=== PATIENT | male | born 1965 | race Caucasian/White ===

== ENCOUNTER 2019-05-14 02:41 | Emergency (ER) | payer BC ==
[2019-05-14] MEDS ORDERED: Ketorolac 30 MG/ML SDV IM ONE (03:13)
[2019-05-14] MEDS ORDERED: diphenhydrAMINE 50 MG/ML SDV IM ONE (03:13)
--- NOTE | 2019-05-14 03:20 | EDM.PDOC ---
ED HPI GENERAL MEDICAL PROBLEM - General Chief Complaint: General Stated Complaint: SICK, CONGESTED Time Seen by Provider: 05/14/19 03:16 Source of Information: Reports: Patient History Limitations: Reports: No Limitations - History of Present Illness INITIAL COMMENTS - FREE TEXT/NARRATIVE: Gentleman presents with a history of multiple complaints. Patient has not received a flu shot having any other problems. Patient states she has had multiple upper respiratory complaints. 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, NSAIDS headache Pain Score (Numeric/FACES): 8 - Related Data Allergies Allergy/AdvReac Type Severity Reaction Status Date / Time No Known Allergies Allergy Verified 05/14/19 02:52 Home Meds: Home Meds ClonazePAM [KlonoPIN] 05/14/19 [History] Lisinopril [Zestril] 0 mg PO DAILY 05/14/19 [History] Metoprolol Succinate 50 mg PO DAILY 05/14/19 [History] PARoxetine [Paxil] 0 mg PO DAILY 05/14/19 [History] Past Medical History HEENT History: Reports: Hard of Hearing, Impaired Vision Cardiovascular History: Reports: Hypertension Respiratory History: Reports: None Gastrointestinal History: Reports: None Genitourinary History: Reports: None Neurological History: Reports: Migraines Psychiatric History: Reports: Anxiety, Depression Endocrine/Metabolic History: Reports: None Hematologic History: Reports: None Immunologic History: Reports: None Dermatologic History: Reports: None - Infectious Disease History Infectious Disease History: Reports: Measles, Mumps - Past Surgical History Musculoskeletal Surgical History: Reports: Arthroscopic Knee Social & Family History - Family History Family Medical History: Noncontributory - Tobacco Use Smoking Status *Q: Never Smoker - Recreational Drug Use Recreational Drug Use: No ED ROS GENERAL - Review of Systems Review Of Systems: See Below Constitutional: Reports: No Symptoms HEENT: Reports: No Symptoms, Sinus Problem Respiratory: Reports: No Symptoms, Other Cardiovascular: Reports: No Symptoms. Denies: Chest Pain Endocrine: Reports: No Symptoms. Denies: Fatigue GI/Abdominal: Reports: No Symptoms. Denies: Abdominal Pain : Reports: No Symptoms. Denies: Discharge Musculoskeletal: Reports: No Symptoms Skin: Reports: No Symptoms. Denies: Cyanosis, Jaundice Neurological: Reports: No Symptoms. Denies: Confusion, Dizziness, Pre-Existing Deficit, Tremors, Trouble Speaking Psychiatric: Reports: No Symptoms. Denies: Agitation, Anxiety, Homicidal Ideation Hematologic/Lymphatic: Reports: No Symptoms. Denies: Anemia, Easy Bleeding Immunologic: Reports: No Symptoms. Denies: Anaphylaxis, Food Allergy ED EXAM, GENERAL - Physical Exam Exam: See Below Exam Limited By: No Limitations General Appearance: Alert, WD/WN, No Apparent Distress Eye Exam: Bilateral Eye: Normal Fundi, Normal Inspection Ears: Normal External Exam, Normal Canal Ear Exam: Bilateral Ear: Auricle Normal, Canal Normal, TM normal Nose: Normal Inspection, Normal Mucosa Throat/Mouth: Normal Inspection, Normal Lips Head: Atraumatic, Normocephalic Neck: Normal Inspection, Supple Respiratory/Chest: No Respiratory Distress, Lungs Clear, No Accessory Muscle Use Cardiovascular: Normal Peripheral Pulses GI/Abdominal: Normal Bowel Sounds, Soft, Non-Tender (Male) Exam: No Hernia, Normal Inspection Rectal (Males) Exam: Deferred. No: Normal Rectal Tone Back Exam: Normal Inspection. No: Full Range of Motion Extremities: Normal Inspection. No: Normal Range of Motion, No Pedal Edema, Normal Capillary Refill Psychiatric: Normal Affect, Normal Mood Skin Exam: Warm, Dry. No: Intact, Normal Color Course - Vital Signs Text/Narrative:: 53-year-old gentleman who presents to the emergency room with multiple upper respiratory problems. Patient found out to have influenza A. Patient will be discharged home with possibility of receiving tamiflu. Last Recorded V/S: Last Vital Signs Temp 100.2 F 05/14/19 03:02 Pulse 107 H 05/14/19 03:02 Resp 20 05/14/19 03:02 BP 148/64 H 05/14/19 03:02 Pulse Ox 94 L 05/14/19 03:02 - Orders/Labs/Meds Meds: Medications Discontinued Medications Generic Name Dose Route Start Last Admin Trade Name Freq PRN Reason Stop Dose Admin Diphenhydramine HCl 50 mg 05/14/19 03:13 05/14/19 03:25 Benadryl IM 05/14/19 03:14 50 mg ONETIME ONE Administration Ketorolac Tromethamine 30 mg 05/14/19 03:13 05/14/19 03:25 Toradol IM 05/14/19 03:14 30 mg ONETIME ONE Administration Departure - Departure Time of Disposition: 03:59 Disposition: Home, Self-Care 01 Condition: Good Clinical Impression: Influenza A - Discharge Information Instructions: Influenza, Adult Referrals: PCP,Not In Area [Primary Care Provider] - Forms: ED Department Discharge Sepsis Event Note - Evaluation Sepsis Screening Result: No Definite Risk - Focused Exam Vital Signs: Vital Signs Temp Pulse Resp BP Pulse Ox 05/14/19 03:02 100.2 F 107 H 20 148/64 H 94 L Date Exam was Performed: 05/14/19 Time Exam was Performed: 03:54
--- NOTE | 2019-05-14 03:21 | CR ---
INDICATION: Cough TECHNIQUE: Chest radiograph 1 view COMPARISON: None FINDINGS: Moderate degradation of image quality noted due to body habitus. Mediastinum: The mediastinum is normal in appearance. The heart silhouette is normal in size and morphology. Lung: Mild bibasilar subsegmental atelectasis is noted. No sign of pleural effusion seen. No pneumothorax is identified. Bone and Soft tissue: Unremarkable for age. IMPRESSION: 1. Mild bibasilar subsegmental atelectasis is noted. Dictated by: Nitish Ovalles MD @ 05/14/2019 03:20:01 (Electronically Signed)
[2019-05-14] MEDS ORDERED: Oseltamivir 75 MG Cap PO ONE (03:58)
== END 2019-05-14 04:28 | disposition home or self-care (01) ==
LOC: MW.ED 02:41
DX: J10.1 Influenza due to other identified influenza virus with other respiratory manifestations (principal); I10 Essential (primary) hypertension; F41.9 Anxiety disorder, unspecified; F32.9 Major depressive disorder, single episode, unspecified; Z79.899 Other long term (current) drug therapy
CPT/HCPCS: 71045; 87804; 96372; 99283; A9270; J1200; J1885; 99282